=== PATIENT | female | born 1955 | race Caucasian/White ===

== ENCOUNTER 2018-01-02 14:07 | Emergency (ER) | payer MEDICAID ==
[~2018-01-02] VITALS: Ht 170.2 cm; Wt 52.2 kg
[2018-01-02 19:08] VITALS: BP 109/47
== END 2018-01-02 19:08 | disposition home or self-care (01) ==
LOC: ED 14:07
DX: M54.9 Dorsalgia, unspecified (principal); M25.511 Pain in right shoulder
CPT/HCPCS: J1885

== ENCOUNTER 2018-01-03 12:36 | Emergency (ER) | payer MEDICAID ==
[~2018-01-03] VITALS: Ht 170.2 cm; Wt 52.2 kg
[2018-01-03 12:37] VITALS: BP 145/77; Ht 170.2 cm; Wt 52.2 kg
== END 2018-01-03 14:00 | disposition left against medical advice (07) ==
LOC: ED 12:36
DX: Z53.21 Procedure and treatment not carried out due to patient leaving prior to being seen by health care provider (principal)